=== PATIENT | female | born 1965 | race Caucasian/White ===

== ENCOUNTER 2022-12-30 10:17 | Emergency (ER) | payer BC ==
[2022-12-30] MEDS ORDERED: Polymyxin B/Trimethoprim 10 ML Bottle EYEBOTH ONE (11:24)
== END 2022-12-30 11:42 | disposition home or self-care (01) ==
LOC: DL.ED 10:17
DX: H10.33 Unspecified acute conjunctivitis, bilateral (principal); Z88.2 Allergy status to sulfonamides
CPT/HCPCS: 99283; A9270-GY